=== PATIENT | female | born 1975 | race American Indian/Alaskan Native ===

== ENCOUNTER 2016-10-03 07:48 | Emergency (ER) | payer OTHER ==
[2016-10-03 08:00] VITALS: RESP 16; TEMP 98.1
[2016-10-03] MEDS ORDERED: LIDOCAINE 2% JELLY 5 ML TUBE TP ONE ×2 (08:08→08:10)
[2016-10-03] MEDS ORDERED: LIDOCAINE 2% JELLY 5 ML TUBE ONE (08:08)
--- NOTE | 2016-10-03 08:18 | UCPHY ---
H & P Time Seen by Provider: 10/03/16 08:03 Patient Type: Established HPI/ROS: This patient was cutting about a squash this morning prior to arrival with a knife that slipped and caused a laceration to the dorsum of her left 2nd finger with moderate pain and bleeding prior to arrival. The bleeding slowed with direct pressure prior to arrival. She reports mild tingling to the distal finger but no sadaf numbness. She has no other injuries. ROS: She is still able to extend the finger. She reports no feeling of foreign body. She has no other injuries in 5 point ROS is otherwise negative. Past Medical/Surgical History: Otherwise healthy Smoking Status: Never smoked Physical Exam: Physical Exam Vital signs are normal. General: No acute distress Eyes: Pupils equal and react to light. Extraocular motions are intact. Cardiac: Brisk capillary refill is intact throughout. Pulses are 2+ and symmetric in the affected extremity. Skin: No rash or pallor. She has a 2 cm L-shaped laceration to the proximal dorsum of the left 2nd finger Neuro: Alert. She maintains 2 point discrimination to the affected finger Constitutional: Initial Vital Signs Temperature (C) 36.7 C 10/03/16 07:58 Heart Rate 80 10/03/16 07:58 Respiratory Rate 16 10/03/16 07:58 Blood Pressure 129/89 H 10/03/16 07:58 O2 Sat (%) 95 10/03/16 07:58 O2 Delivery Mode Room Air Allergies/Adverse Reactions: morphine [Morphine] Allergy (Intermediate, Verified 10/03/16 08:01) Itching sulfamethoxazole [From Bactrim] Allergy (Intermediate, Verified 10/03/16 08:01) Other-Enter Comments trimethoprim [From Bactrim] Allergy (Intermediate, Verified 10/03/16 08:01) Other-Enter Comments Home Medications: Medication Instructions Recorded NK [No Known Home Meds] 10/03/16 MDM/Departure - MDM Procedures: The wound is 2 cm, L-shaped, full-thickness with no deeper structures injured tendon is intact. The wound was copiously irrigated with saline. The wound was explored for foreign bodies and none were found. The wound was prepped and draped in the normal sterile fashion. The wound was anesthetized using 2% topical lidocaine followed by 1% lidocaine with sodium bicarb buffer, 27 gauge needle-3 mL with good effect. The edges were reapproximated using 4 0 Ethilon- 1 interrupted suture and 10 running sutures with good hemostasis and cosmesis. The patient tolerated the procedure well. There were no complications Medications Given: Discontinued Medications Lidocaine (Lidocaine 2% Jelly) 1 dieter TP EDNOW ONE Stop: 10/03/16 08:09 Last Admin: 10/03/16 08:14 Dose: Not Given Lidocaine (Lidocaine 2% Jelly) 1 dieter TP ONCE ONE Stop: 10/03/16 08:11 Last Admin: 10/03/16 08:10 Dose: 1 dieter - Depart Disposition: Home, Routine, Self-Care Clinical Impression: Finger laceration Qualifiers: Encounter type: initial encounter Qualifier Code: (S61.219A) Laceration without foreign body of unspecified finger without damage to nail, initial encounter Condition: Good Instructions: Care For Your Stitches (ED) Additional Instructions: Diagnosis: Finger laceration Plan: Keep the wound clean and dry for the next 2 days. Then clean daily with warm soapy water. Ibuprofen and/or Tylenol for pain as needed. Return for suture removal in 10-12 days. Return sooner if he develops redness, discharge or other concerns for infection. Referrals: JOANN LANTIGUA [Primary Care Provider] - As per Instructions - PQRS PQRS Measurement: NA
[2016-10-03 09:27] VITALS: BP 122/84; PULSE 76; O2SAT 96
== END 2016-10-03 09:34 | disposition home or self-care (01) ==
LOC: CED 07:48
PROC: 0HQGXZZ Repair Left Hand Skin, External Approach (ICD-10-PCS; principal; 2016-10-03)
DX: S61.211A Laceration without foreign body of left index finger without damage to nail, initial encounter (principal); W26.0XXA Contact with knife, initial encounter; Y93.G1 Activity, food preparation and clean up; Y92.019 Unspecified place in single-family (private) house as the place of occurrence of the external cause; Y99.8 Other external cause status
CPT/HCPCS: 12001-PO; 99213-PO; G0463-PO